=== PATIENT | female | born 1975 | race Caucasian/White ===

== ENCOUNTER 2022-08-29 14:24 | Emergency (ER) | payer OTHER ==
[~2022-08-29] VITALS: Ht 177.8 cm; Wt 77.1 kg
[2022-08-29 14:35] VITALS: BP_SYST 150
--- NOTE | 2022-08-29 14:35 | NUR ---
Patient to ER bed 08 to gown for evaluation. Side rails up.
--- NOTE | 2022-08-29 14:49 | NUR ---
ASSUMED CARE FROM STATISTICAL DEVELOPER. PT PRESENTLY CLOTHED IN RESTROOM OBTAINING URINE SPECIMEN. ESCORTED BACK TO ROOM FOR [facility]LEY[facility] W/ DR. GONZÁLES. COMFORT MEASURES AND SUPPORTIVE CARE INITIATED.
[2022-08-29 15:00] LABS: BILIRUBIN,URINE NEGATIVE (NEGATIVE); BLOOD, URINE 3+ (NEGATIVE); CLARITY/URINE CLOUDY (CLEAR); COLOR,URINE YELLOW (YELLOW); GLUCOSE,URINE NEGATIVE (NEGATIVE); KETONES,URINE NEGATIVE (NEGATIVE); LEUKOCYTE ESTERASE ,URINE 3+ (NEGATIVE); NITRITE, URINE NEGATIVE (NEGATIVE); PROTEIN URINE 2+ (NEGATIVE); UROBILINOGEN,URINE 0.2 (0.2-1.0)
[2022-08-29 15:17] LABS: BACTERIA,URINE FEW /HPF (None Seen); MUCUS,URINE None Seen /LPF (None Seen); RBC,URINE 50-80 /HPF (0-3); WBC,URINE >100 /HPF (0-3)
[2022-08-29] MEDS ORDERED: cefTRIAXone 1 GM in LIDOCAINE 1%, 20 ML MDV 2.1 ML IM ONE (16:00)
[2022-08-29] MEDS ORDERED: NITR-85 PO (16:08)
--- NOTE | 2022-08-29 16:10 | NUR ---
AT BS. MEDS ORDERED AND GIVEN,
[2022-08-29 16:26] VITALS: BP_SYST 130
--- NOTE | 2022-08-29 16:29 | NUR ---
THOROUGH ACI GIVEN BY DR. GONZÁLES. PT VERB UNDERSTANDING. AGREES WITH DC PLAN.
== END 2022-08-29 16:26 | disposition home or self-care (01) ==
LOC: SED 14:24
DX: N39.0 Urinary tract infection, site not specified (principal); R30.0 Dysuria; R33.9 Retention of urine, unspecified; R39.15 Urgency of urination; Z79.899 Other long term (current) drug therapy
CPT/HCPCS: 99283; 81000; 87086; 87210; 96372; J0696; J2001